=== PATIENT | female | born 2000 | race Two or more races ===

== ENCOUNTER 2023-04-27 07:56 | Emergency (ER) | payer OTHER ==
[~2023-04-27] VITALS: Ht 165.1 cm; Wt 70.3 kg
[~2023-04-27 07:56] MED LIST: FERROPLEX PO
== END 2023-04-27 10:43 | disposition home or self-care (01) ==
LOC: ER 07:56
DX: S30.1XXA Contusion of abdominal wall, initial encounter (principal); V49.9XXA Car occupant (driver) (passenger) injured in unspecified traffic accident, initial encounter; Y93.9 Activity, unspecified; Y92.413 State road as the place of occurrence of the external cause; Y99.9 Unspecified external cause status

== ENCOUNTER 2024-08-14 12:28 | Emergency (ER) | payer OTHER ==
[~2024-08-14] VITALS: Ht 152.4 cm; Wt 72.6 kg
[2024-08-14] MEDS ORDERED: BUTALB/ACETAMINOPHEN/CAFFEINE 1 TAB TABLET PO ONE ×2 (14:00→14:04)
[2024-08-14 14:43] LABS: HEMATOCRIT 41.5 % (36.0-45.00); HEMOGLOBIN 13.2 g/dL (12.0-15.00); MEAN CELL VOLUME 77.8 fL (80.00-100.00); MEAN CORPUSCULAR HEMOGLOBIN 24.7 pg (27.00-32.0); MEAN CORPUSCULAR HGB CONC 31.8 g/dl (32.0-36.0); PLATELET COUNT 396 K/uL (150-450); RED BLOOD COUNT 5.33 M/uL (4.00-6.00); RED CELL DISTRIBUTION WIDTH 18.5 % (11.5-14.5)
[2024-08-14] MEDS ORDERED: MOMETASONE FURO17 GM NASAL (17:56)
[2024-08-14] MEDS ORDERED: AMOX-CLAV 875-1 EACH PO (17:56)
== END 2024-08-14 18:08 | disposition home or self-care (01) ==
LOC: ER 12:30
PROVIDERS: General Practice
DX: J32.9 Chronic sinusitis, unspecified (principal); J02.9 Acute pharyngitis, unspecified; R05.8 Other specified cough; R51.9 Headache, unspecified; R09.82 Postnasal drip; Z20.822 Contact with and (suspected) exposure to COVID-19